=== PATIENT | male | born 1935 | race Caucasian/White ===

== ENCOUNTER 2018-04-01 12:15 | Inpatient (IN) | payer OTHER ==
[~2018-04-01] VITALS: Ht 182.9 cm; Wt 81.6 kg
[2018-04-01] MEDS ORDERED: LOSARTAN-HCTZ1 EACH PO (15:14)
[2018-04-01] MEDS ORDERED: OMEPRAZOLE20 M1 PO (15:15)
[2018-04-01] MEDS ORDERED: ASA81 MG PO (15:15)
[2018-04-10] MEDS ORDERED: OMEPRAZOLE20 M1 PO (17:03)
[2018-04-10] MEDS ORDERED: INTESTINEX680 M1 PO (17:03)
[2018-04-10] MEDS ORDERED: TYLENOL ARTHRI650 MG PO (17:03)
== END 2018-04-10 17:44 | disposition home or self-care (01) | DRG 331 ==
LOC: SURH 04-07 05:30 → O/R 04-07 05:30 → SURH 04-07 10:30 → SURG 04-07 13:28 → O/R 04-07 13:39 → SURH 04-07 21:30
PROVIDERS: Surgery
PROC: 0DTP4ZZ Resection of Rectum, Percutaneous Endoscopic Approach (ICD-10-PCS; 2018-04-07)
PROC: 07TC4ZZ Resection of Pelvis Lymphatic, Percutaneous Endoscopic Approach (ICD-10-PCS; 2018-04-07)
PROC: 0D1N4Z4 Bypass Sigmoid Colon to Cutaneous, Percutaneous Endoscopic Approach (ICD-10-PCS; principal; 2018-04-07 10:30)
DX: C20 Malignant neoplasm of rectum (principal); R59.0 Localized enlarged lymph nodes; I11.9 Hypertensive heart disease without heart failure; I48.0 Paroxysmal atrial fibrillation; Z95.0 Presence of cardiac pacemaker; E87.6 Hypokalemia

== ENCOUNTER 2018-04-06 06:10 | Day surgery (SDC) | payer OTHER ==
[~2018-04-06 06:10] MED LIST: ASA81 MG PO; LOSARTAN-HCTZ1 EACH PO; OMEPRAZOLE20 M1 PO
== END 2018-04-06 10:35 | disposition home or self-care (01) ==
LOC: AMB-ENDOS 06:10
DX: C19 Malignant neoplasm of rectosigmoid junction (principal)

== ENCOUNTER 2019-01-08 01:34 | Emergency (ER) | payer OTHER ==
[~2019-01-08] VITALS: Ht 182.9 cm; Wt 81.2 kg
[~2019-01-08 01:34] MED LIST changes: +INTESTINEX680 M1 PO; +TYLENOL ARTHRI650 MG PO
[2019-01-08] MEDS ORDERED: RESTORA CAPSUL1 EACH (01:44)
== END 2019-01-08 04:37 | disposition home or self-care (01) ==
LOC: ER 01:34
DX: S00.83XA Contusion of other part of head, initial encounter (principal); W20.8XXA Other cause of strike by thrown, projected or falling object, initial encounter; Y93.89 Activity, other specified; Y92.128 Other place in nursing home as the place of occurrence of the external cause; Y99.8 Other external cause status

== ENCOUNTER 2020-03-09 09:32 | Outpatient (CLI) | payer OTHER ==
[~2020-03-09 09:32] MED LIST changes: +RESTORA CAPSUL1 EACH
== END 2020-03-09 09:34 | disposition home or self-care (01) ==
LOC: TOM 09:32
PROVIDERS: ATTEND Psychiatry & Neurology Clinical Neurophysiology
DX: G30.1 Alzheimer's disease with late onset (principal)